=== PATIENT | female | born 1970 | race Hispanic/Latino ===

== ENCOUNTER 2018-01-27 01:00 | Emergency (ER) | payer MEDICAID, OTHER ==
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
[2018-01-27 03:57] VITALS: BP 104/65; PULSE 77; RESP 16; TEMP 98.5
[2018-01-27 05:08] VITALS: O2SAT 98
--- NOTE | 2018-01-27 07:43 | RAD ---
PROCEDURE: Left Hip X-ray Radiographs. HISTORY: pain s.p fall COMPARISON: None. FINDINGS: BONES: No acute fracture identified. Three screws noted traversing the right femoral head neck junction; no evidence of hardware failure or loosening. Patient is status post left hip replacement. Adjacent to the distal portion of the intramedullary stem of the left femur, there is 1 mm area of lucency. Old healed left mid femoral shaft fracture. JOINTS: No dislocation seen. Pubic symphysis and sacroiliac joints are unremarkable. SOFT TISSUES: Unremarkable OTHER FINDINGS: None. IMPRESSION: 1 mm area of lucency adjacent to distal portion of left femoral stem which may represent loosening. Correlate clinically.
--- NOTE | 2018-01-27 07:45 | RAD ---
PROCEDURE: Left Knee Radiographs. HISTORY: Pain. COMPARISON: None. FINDINGS: BONES: No acute fracture identified. There is severe degenerative changes of the knee with tricompartmental periarticular osteophyte formation. Severe narrowing lateral joint space compartment with near [id number] contact. Narrowing of the patellofemoral and medial joint space compartments also noted. Patient status post ACL reconstruction with hardware appearing intact. Surgical hardware also noted of the lateral tibial plateau and proximal lateral tibial metadiaphysis. JOINTS: No dislocation seen. Additional findings as above. JOINT EFFUSION: No significant joint effusion. OTHER FINDINGS: None. IMPRESSION: Postsurgical changes as above. Severe degenerative changes as above. .
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
== END 2018-01-27 03:58 | disposition home or self-care (01) ==
LOC: SUPCPDRO 01:00 → C.ER 01:00
DX: S20.211A Contusion of right front wall of thorax, initial encounter (principal); S70.02XA Contusion of left hip, initial encounter; Y09 Assault by unspecified means; I10 Essential (primary) hypertension; M79.7 Fibromyalgia; Z76.0 Encounter for issue of repeat prescription